=== PATIENT | female | born 1945 | race African-American/Black ===

== ENCOUNTER 2023-08-03 06:35 | Inpatient (IN) | payer OTHER, MEDICAID ==
[~2023-08-03] VITALS: Ht 175.3 cm; Wt 105.0 kg
[2023-08-03] MEDS: ceFAZolin 2 GM/D5W50ml 50 ML IV ONE (06:22)
[2023-08-03] MEDS: TRANEXAMIC ACID 20 ML ONE (06:34)
[2023-08-03] MEDS: LIDOCAINE 2% JELLY 11ml (GLYDO) ONE (06:34)
[~2023-08-03 06:35] MED LIST: ACET-1080 PO; ALBUAER3 IN; ATEN50TA80 PO; EMPA1TAB PO; FAMO-68 PO; FLUT250M2 IN; HYDR25TA4 PO; LOSA-535 PO; NIFE1TAB31 PO; OMEP20TA PO; PREG100C PO; SIMV10TA20 PO
[2023-08-03] MEDS: DOXAPRAM HCL 20 MG/ML 20ML VIAL INJ IV ONE (06:47)
[2023-08-03] MEDS: SUCCINYLCHOLINE CHLORIDE 20 MG/ML 10ML VIAL IV ONE (06:47)
[2023-08-03] MEDS: ROCURONIUM 10MG/ML 10ML VIAL IV ONE (06:47)
[2023-08-03] MEDS ORDERED: fentaNYL CITRATE 100 MCG/2 ML VL ONE (06:55)
[2023-08-03] MEDS ORDERED: NEOSTIGMINE 1 MG/ML INJ (10mg/10ML VIAL) ONE (06:55)
[2023-08-03] MEDS ORDERED: GLYCOPYRROLATE 0.2 MG/ML 1ML VIAL ONE (06:55)
[2023-08-03] MEDS ORDERED: KETAMINE 50mg/ML 1ml syringe ONE (06:55)
[2023-08-03] MEDS ORDERED: ONDANSETRON HCL 4 MG/2 ML VIAL ONE (06:55)
[2023-08-03] MEDS ORDERED: DexAMETHasone SOD PHOS 10MG/1ML VIAL INJ ONE (06:55)
[2023-08-03] MEDS ORDERED: PROPOFOL 10 MG/ML 20 ML IV ONE (06:55)
[2023-08-03] MEDS ORDERED: LIDOCAINE 1% INJ PF 5ML AMP ONE (06:55)
[2023-08-03] MEDS ORDERED: MEPERIDINE HCL (50 MG/ML) 1 ML VIAL ONE (06:55)
[2023-08-03] MEDS ORDERED: SODIUM CHLORIDE LOCK 10 ML ONE (06:55)
[2023-08-03] MEDS ORDERED: LIDOCAINE 2% TOPICAL JELLY 5 ML URJT TOP ONE (06:55)
[2023-08-03] MEDS ORDERED: MIDAZOLAM HCL 2MG/2ML 2ml VIAL (1mg/ml) ONE (06:55)
[2023-08-03] MEDS ORDERED: MORPHINE SULFATE INJ 2 MG/ml SYRG IV PRN ×2 (07:15→12:45)
[2023-08-03] MEDS ORDERED: fentaNYL CITRATE 100 MCG/2 ML VL IV PRN (07:15)
[2023-08-03] MEDS ORDERED: HYDROmorphone HCL 2 MG/ML VL/or syr IV PRN ×2 (07:15)
[2023-08-03] MEDS: ACCU-CHEK COMFORT CURVE STRIP VI ONE (07:15)
[2023-08-03] MEDS: levoFLOXacin 750MG 150 ML IV ONE (07:15)
[2023-08-03] MEDS: METOCLOPRAMIDE HCL 5MG/ml INJ 2ml VIAL IV ONE (07:15)
[2023-08-03] MEDS ORDERED: MORPHINE SULFATE 4 MG/ML SYR/VIAL IV PRN (10:45)
[2023-08-03] MEDS: ONDANSETRON HCL 4 MG/2 ML VIAL IV ONE (10:45)
[2023-08-03] MEDS ORDERED: LABETALOL HCL 5 MG/ML 4ML SYRINGE IV PRN (10:45)
[2023-08-03] MEDS ORDERED: MIDAZOLAM HCL 2MG/2ML 2ml VIAL (1mg/ml) IV PRN (10:45)
[2023-08-03] MEDS ORDERED: ePHEDrine SULFATE 50 MG/ML AMP IV PRN (10:45)
[2023-08-03] MEDS ORDERED: LABETALOL HCL 5 MG/ML ML 20ML VIAL IV PRN (11:00)
[2023-08-03] MEDS: D5W/SOD CHLO 0.9% 1,000 ML IV SCH (12:45)
[2023-08-03] MEDS ORDERED: NITROGLYCERIN 0.4 MG SL TAB SL PRN (12:45)
[2023-08-03] MEDS ORDERED: ONDANSETRON HCL 4 MG/2 ML VIAL IV PRN (12:45)
[2023-08-03] MEDS ORDERED: ACETAMINOPHEN 325 MG TAB PO PRN (12:45)
[2023-08-03] MEDS ORDERED: ALBUTEROL SULF HFA 90MCG INH 200DOSE IN SCH (12:45)
[2023-08-03] MEDS ORDERED: SUGAMMADEX 200mg/2ml Vial (100MG/ML) IV ONE (12:46)
[2023-08-03] MEDS: BACITRACIN TOP OINT 1 UD PKG TOP ONE (12:57)
[2023-08-03 13:12] VITALS: O2SAT 94
[2023-08-03] MEDS: HYDROmorphone HCL 2 MG/ML VL/or syr ONE (13:47)
[2023-08-03] MEDS: HYDROmorphone HCL 2 MG/ML VL/or syr IV PRN (13:49)
[2023-08-03] MEDS: ceFAZolin 1GM/50ML 50 ML IV SCH (14:30)
[2023-08-03 15:21] VITALS: BP 157/69; PULSE 77; RESP 17; RESP 18; TEMP 97.5; O2SAT 94
[2023-08-03] MEDS: CYCLOBENZAPRINE HCL 10 MG TAB PO SCH (15:51)
[2023-08-03] MEDS: MORPHINE SULFATE INJ 2 MG/ml SYRG IV PRN (15:53)
[2023-08-03 17:00] VITALS: BP 159/70; PULSE 80; RESP 18; TEMP 97.8; O2SAT 96
[2023-08-03] MEDS ORDERED: PHENYLEPHRINE HCL 10 MG/ML VL IV ONE (18:07)
[2023-08-03] MEDS: THROAT LOZENGES(CEPASTAT) MT PRN (18:30)
[2023-08-03 20:00] VITALS: PULSE 85
[2023-08-03] MEDS: DOCUSATE SOD 100 MG CAP PO SCH (21:45)
[2023-08-03 22:00] VITALS: BP 148/53; PULSE 73; RESP 17; TEMP 97.6; O2SAT 96
[2023-08-03] MEDS ORDERED: PREGABALIN 25 MG CAP PO SCH (22:00)
[2023-08-04] VITALS (10 sets, daily range): BP systolic 109–150; BP diastolic 46–66; PULSE 68–85; RESP 16–20; TEMP 98.1–98.7; O2SAT 93–98
[2023-08-04] MEDS: HYDROcodone-ACET 10/325MG TAB PO PRN (06:03)
[2023-08-04] MEDS: EMPAGLIFLOZIN 10 MG TAB PO SCH (09:58)
[2023-08-04] MEDS: FAMOTIDINE 20 MG TAB PO SCH (09:59)
[2023-08-04] MEDS: hydroCHLOROthiazide 25 MG TAB PO SCH (09:59)
[2023-08-04] MEDS ORDERED: PATIENTS OWN MEDICATION (Losartan Potassium 100 MG) PO SCH (10:00)
[2023-08-04] MEDS: ATENOLOL 25 MG TAB PO SCH (10:00)
[2023-08-04] MEDS: ALBUTEROL SULF 2.5 MG/0.5ML(0.5%) NEB SOLN NEB SCH (10:20)
[2023-08-04] MEDS: NIFEdipine ER 30 MG TAB PO SCH (12:40)
[2023-08-05] VITALS (11 sets, daily range): BP systolic 104–144; BP diastolic 44–65; PULSE 65–82; RESP 18–20; TEMP 98.1–99; O2SAT 90–99
[2023-08-05 15:57] LABS: Basophils # (auto) 0 10 ^3/uL (0-0.2); Basophils % (auto) 0.4 % (0.0-2.0); Eosinophils # (auto) 0 10 ^3/uL (0-0.8); Eosinophils % (auto) 0.1 % (0.0-7.0); Hematocrit 41.9 % (36.0-46.0); Hemoglobin 13.6 g/dL (12.2-16.2); Lymphocytes # (auto) 1.5 10 ^3/uL (0.4-5.4); Lymphocytes % (auto) 15.5 % (10.0-50.0); Mean Corpuscular Hemoglobin 30.5 pg (28.0-32.0); Mean Corpuscular Hgb Conc. 32.4 g/dL (32.0-36.0); Mean Corpuscular Volume 94.2 fL (80.0-100.0); Monocytes # (auto) 1.1 10 ^3/uL (0-1.3); Monocytes % (auto) 10.8 % (0.0-12.0); Neutrophils # (auto) 7.1 10 ^3/uL (1.6-8.6); Neutrophils % (auto) 73.2 % (37.0-80.0); Nucleated Red Blood Cells % 0.1 %; Red Blood Cells 4.44 10^6/uL (4.0-5.20); Red Cell Distribution Width 13.4 % (11.8-14.3); White Blood Cell 9.8 10^3/uL (4.4-10.8)
[2023-08-05 16:18] LABS: Alanine Aminotransferase 23 U/L (7-40); Albumin 3.8 g/dL (3.2-4.8); Alkaline Phosphatase 97 U/L (46-116); Anion Gap 7 (5-15); Aspartate Aminotransferase 22 U/L (13-40); BUN/Creatinine Ratio 18.3 (10.0-20.0); Bilirubin, Total 1.1 mg/dL (0.2-1.0); Blood Urea Nitrogen 15 mg/dL (9-23); Calcium 8.7 mg/dL (8.5-10.1); Carbon Dioxide 27 mmol/L (20-30); Chloride 103 mmol/L (98-107); Glucose 139 mg/dL (74-106); Potassium 3.5 mmol/L (3.5-5.1); Sodium 137 mmol/L (136-145); Total Protein 6.8 g/dL (5.7-8.2)
[2023-08-06] VITALS (10 sets, daily range): BP systolic 106–126; BP diastolic 41–73; PULSE 62–89; RESP 14–20; TEMP 97.1–98.7; O2SAT 89–97
[2023-08-06] MEDS ORDERED: DEXTROSE (50%) 50ML SYRG IV PRN (11:45)
[2023-08-06] MEDS: ACCU-CHEK COMFORT CURVE STRIP VI SCH (17:12)
[2023-08-06] MEDS: InsuLIN REG 1unit/0.01ml Soln (100units/ml) SC SCH (17:12)
[2023-08-07] VITALS (10 sets, daily range): BP systolic 106–125; BP diastolic 45–60; PULSE 63–72; RESP 17–18; TEMP 97.7–98.3; O2SAT 92–95
[2023-08-07] MEDS ORDERED: AMOX500T86 PO (15:18)
[2023-08-07] MEDS ORDERED: HYDR-4902 PO (15:18)
[2023-08-07] MEDS ORDERED: SENN-105 PO (15:18)
[2023-08-07] MEDS ORDERED: NALO4SPR2 (15:21)
== END 2023-08-07 18:08 | disposition home health service (06) | DRG 473 ==
LOC: SUR 06:35 → TELE 12:39 → TELE-WESTW 14:35 → WEST WING 08-06 12:44
PROVIDERS: ADMIT Orthopaedic Surgery; ATTEND Internal Medicine
PROC: 0RB30ZZ Excision of Cervical Vertebral Disc, Open Approach (ICD-10-PCS; 2023-08-03)
PROC: 01N10ZZ Release Cervical Nerve, Open Approach (ICD-10-PCS; 2023-08-03)
PROC: 00NW0ZZ Release Cervical Spinal Cord, Open Approach (ICD-10-PCS; 2023-08-03)
PROC: 4A11X4G Monitoring of Peripheral Nervous Electrical Activity, Intraoperative, External Approach (ICD-10-PCS; 2023-08-03)
PROC: 0RG20A0 Fusion of 2 or more Cervical Vertebral Joints with Interbody Fusion Device, Anterior Approach, Anterior Column, Open Approach (ICD-10-PCS; principal; 2023-08-03 09:46)
DX: M48.02 Spinal stenosis, cervical region (principal); M50.10 Cervical disc disorder with radiculopathy, unspecified cervical region; M47.22 Other spondylosis with radiculopathy, cervical region; I10 Essential (primary) hypertension; E78.5 Hyperlipidemia, unspecified; E11.9 Type 2 diabetes mellitus without complications; K21.9 Gastro-esophageal reflux disease without esophagitis; J44.9 Chronic obstructive pulmonary disease, unspecified; E66.9 Obesity, unspecified; I49.3 Ventricular premature depolarization; Z68.34 Body mass index [BMI] 34.0-34.9, adult
CPT/HCPCS: 36415; 71046; 80053; 82962; 85025; 86850; 86900; 86901; 93005; 93306; 94640; 97110; 97116; 97163; G0378; J0330; J1100; J1815; J2250; J2405; J2704; J3490; J7042